=== PATIENT | male | born 1950 | race Caucasian/White ===

== ENCOUNTER 2016-07-29 01:28 | Day surgery (SDC) | payer MEDICARE, OTHER ==
[~2016-07-29] VITALS: Ht 188 cm; Wt 80.7 kg
[2016-07-29] MEDS ORDERED: fentaNYL-PF 50 mCg/mL 2 mL Inj IVPUSH PRN (06:00)
[2016-07-29] MEDS ORDERED: Sodium Chloride LOK Flush 10 mL Syringe IV PRN (06:00)
[2016-07-29 08:12] VITALS: BP 129/76; PULSE 58; RESP 16; O2SAT 100
[2016-07-29] MEDS: 0.9% Sodium Chloride 1,000 ML IV SCH ×3 (08:20→09:06)
[2016-07-29 09:17] VITALS: BP 118/65; PULSE 53; RESP 16; O2SAT 98
[2016-07-29 09:26] VITALS: BP 113/70; PULSE 56; RESP 16; O2SAT 100
--- NOTE | 2016-07-29 09:46 | ENDO ---
[address] [address] ENDOSCOPY PROCEDURE PATIENT: KAYLAN GIL : 1950 MR#: [id number] ADMIT: 07/29/2016 JOB ID: [id number] DATE: 07/29/2016 PREOPERATIVE DIAGNOSIS: Colorectal cancer screening. POSTOPERATIVE DIAGNOSIS: Normal colonoscopy to cecum. OPERATION: Colonoscopy to cecum. SURGEON: Pipo Lewis M.D. INDICATIONS: A 66-year-old male who had a normal colonoscopy 10 years ago. He is here for colorectal cancer screening. There is no family history or personal history of colon cancer or polyps and he has no colorectal symptoms. FINDINGS: He had a good to excellent prep. The scope was advanced to the cecum. It was withdrawn over 7 minutes and 10 seconds. Retroflexed views of the rectum were obtained. There were no abnormalities. I saw no polyps, inflammatory lesions, ulcerations, strictures or vascular lesions. Retroflexed views of the rectum were normal. DESCRIPTION OF PROCEDURE: The procedure and sedation plan was discussed with the patient and nursing staff. Informed consent was obtained. A procedural time-out was called. He received 3 mg of Versed, 50 mcg of fentanyl. A digital rectal examination was performed. The Olympus PCF H 190 videocolonoscope was passed transanally, advanced to the cecum using CO2 insufflation withdrawn over 7 minutes 10 seconds. No biopsies were taken. There were no apparent complications. The patient tolerated the procedure well. IMPRESSION: Normal colonoscopy to cecum. RECOMMENDATIONS: Colonoscopy 10 years. AMAURY
== END 2016-07-29 23:59 | disposition home or self-care (01) ==
LOC: END 01:28
PROVIDERS: ATTEND Surgery
DX: Z12.11 Encounter for screening for malignant neoplasm of colon (principal); M19.90 Unspecified osteoarthritis, unspecified site; N40.1 Benign prostatic hyperplasia with lower urinary tract symptoms
CPT/HCPCS: 99153; G0121; G0500; J7030